=== PATIENT | male | born 1965 | race Caucasian/White ===

== ENCOUNTER 2020-05-29 19:48 | Emergency (ER) | payer BC, OTHER ==
--- NOTE | 2020-05-29 20:07 | EDM.PDOC ---
ED HPI GENERAL MEDICAL PROBLEM - General Chief Complaint: Chest Pain Stated Complaint: DIFFICULTY BREATHING, CHEST PAINS Time Seen by Provider: 05/29/20 20:03 Source of Information: Reports: Patient History Limitations: Reports: No Limitations - History of Present Illness INITIAL COMMENTS - FREE TEXT/NARRATIVE: onset upper chest pain ~ 4pm after ice fishing, denies straining or fall. hurts more on deep breath and unable to deep breath. denies h/o heart/lung problems only takes dexedrine for narcolepsy. denies recent cough/F/C. - Related Data Allergies Allergy/AdvReac Type Severity Reaction Status Date / Time No Known Allergies Allergy Verified 05/29/20 20:09 ED ROS GENERAL - Review of Systems Review Of Systems: Comprehensive ROS is negative, except as noted in HPI. ED EXAM, GENERAL - Physical Exam Exam: See Below Exam Limited By: No Limitations General Appearance: Alert, WD/WN, Anxious, Mild Distress, Moderate Distress, Other (discomfort) Ears: Hearing Grossly Normal Throat/Mouth: Normal Voice, No Airway Compromise Head: Atraumatic Neck: Non-Tender, Full Range of Motion Respiratory/Chest: No Respiratory Distress, Rhonchi Cardiovascular: Regular Rate, Rhythm GI/Abdominal: Soft, Non-Tender (Male) Exam: Deferred Rectal (Males) Exam: Deferred Back Exam: Full Range of Motion Extremities: Normal Range of Motion Neurological: Alert, Oriented, Normal Cognition, Normal Gait, No Motor/Sensory Deficits Psychiatric: Anxious Skin Exam: Warm, Dry, Normal Color Lymphatic: No Adenopathy Course - Vital Signs Last Recorded V/S: Last Vital Signs Temp 37.5 C 05/29/20 20:14 Pulse 115 H 05/29/20 20:14 Resp 22 H 05/29/20 20:14 BP 160/109 H 05/29/20 20:14 Pulse Ox 99 05/29/20 20:14 - Orders/Labs/Meds Orders: Active Orders 24 hr Category Date Time Status EKG 12 Lead [EKG Documentation Completion] [RC] STAT Care 05/29/20 20:02 Active Labs: Laboratory Tests 05/29/20 05/29/20 05/29/20 Range/Units 20:04 20:04 20:04 WBC 13.4 H (5.0-10.0) 10^3/uL RBC 5.00 (4.6-6.2) 10^6/uL Hgb 15.6 (14.0-18.0) g/dL Hct 45.3 (40.0-54.0) % MCV 90.6 (80-100) fL MCH 31.2 (27.0-34.0) pg MCHC 34.4 (33.0-35.0) g/dL Plt Count 266 (150-450) 10^3/uL Neut % (Auto) 76.7 H (42.2-75.2) % Lymph % (Auto) 12.1 L (20.5-50.1) % Atlantic % (Auto) 10.5 H (2-8) % Eos % (Auto) 0.3 L (1.0-3.0) % Baso % (Auto) 0.4 (0.0-1.0) % D-Dimer, Quantitative < 100 (0-400) ng/mL Sodium 141 (136-145) mmol/L Potassium 3.9 (3.5-5.1) mmol/L Chloride 102 (98-107) mmol/L Carbon Dioxide 26 (21-32) mmol/L Anion Gap 16.9 H (7-13) mEq/L BUN 12 (7-18) mg/dL Creatinine 1.25 (0.70-1.30) mg/dL Est Cr Clr Drug Dosing 81.68 mL/min Estimated GFR (MDRD) > 60 BUN/Creatinine Ratio 9.6 (No establ ref range) Glucose 127 H (74-99) mg/dL Lactic Acid (0.4-2.0) mmol/L Calcium 9.2 (8.5-10.1) mg/dL Total Bilirubin 0.9 (0.2-1.0) mg/dL AST 56 H (15-37) U/L ALT 68 H (16-63) U/L Alkaline Phosphatase 82 (46-116) U/L Troponin I < 0.017 (0.000-0.056) ng/mL Total Protein 7.5 (6.4-8.2) g/dL Albumin 4.5 (3.4-5.0) g/dL Globulin 3.0 Albumin/Globulin Ratio 1.5 Amylase (25-115) U/L Lipase (73-393) U/L 05/29/20 05/29/20 Range/Units 20:04 20:04 WBC (5.0-10.0) 10^3/uL RBC (4.6-6.2) 10^6/uL Hgb (14.0-18.0) g/dL Hct (40.0-54.0) % MCV (80-100) fL MCH (27.0-34.0) pg MCHC (33.0-35.0) g/dL Plt Count (150-450) 10^3/uL Neut % (Auto) (42.2-75.2) % Lymph % (Auto) (20.5-50.1) % Atlantic % (Auto) (2-8) % Eos % (Auto) (1.0-3.0) % Baso % (Auto) (0.0-1.0) % D-Dimer, Quantitative (0-400) ng/mL Sodium (136-145) mmol/L Potassium (3.5-5.1) mmol/L Chloride (98-107) mmol/L Carbon Dioxide (21-32) mmol/L Anion Gap (7-13) mEq/L BUN (7-18) mg/dL Creatinine (0.70-1.30) mg/dL Est Cr Clr Drug Dosing mL/min Estimated GFR (MDRD) BUN/Creatinine Ratio (No establ ref range) Glucose (74-99) mg/dL Lactic Acid 2.6 H* (0.4-2.0) mmol/L Calcium (8.5-10.1) mg/dL Total Bilirubin (0.2-1.0) mg/dL AST (15-37) U/L ALT (16-63) U/L Alkaline Phosphatase (46-116) U/L Troponin I (0.000-0.056) ng/mL Total Protein (6.4-8.2) g/dL Albumin (3.4-5.0) g/dL Globulin Albumin/Globulin Ratio Amylase 44 (25-115) U/L Lipase 82 (73-393) U/L Meds: Medications Discontinued Medications Generic Name Dose Route Start Last Admin Trade Name Freq PRN Reason Stop Dose Admin Iopamidol 100 ml 05/29/20 20:41 05/29/20 20:51 Isovue-300 (61%) IVPUSH 05/29/20 20:42 100 ml ONETIME ONE Administration Ketorolac Tromethamine 30 mg 05/29/20 20:10 05/29/20 20:16 Toradol IVPUSH 05/29/20 20:11 30 mg ONETIME ONE Administration - Re-Assessments/Exams Free Text/Narrative Re-Assessment/Exam: 05/29/20 22:01 results discussed with pt who states his pain is about gone. Departure - Departure Time of Disposition: 22:02 Disposition: Home, Self-Care 01 Condition: Good Clinical Impression: Acute chest wall pain, Elevated LFTs Instructions: Nonspecific Chest Pain, Adult, [id number] Forms: ED Department Discharge Additional Instructions: 1) notify family doctor when get home 2) recheck if there is any change or concern 3) try heat to sore area 4) try tylenol or motrin as needed for discomfort Sepsis Event Note (ED) - Focused Exam Vital Signs: Vital Signs Temp Pulse Resp BP Pulse Ox 05/29/20 20:14 37.5 C 115 H 22 H 160/109 H 99 - My Orders Last 24 Hours: My Active Orders 05/29/20 20:02 EKG 12 Lead [EKG Documentation Completion] [RC] STAT - Assessment/Plan Last 24 Hours: My Active Orders 05/29/20 20:02 EKG 12 Lead [EKG Documentation Completion] [RC] STAT
[2020-05-29] MEDS ORDERED: Ketorolac 30 MG/ML SDV IVPUSH ONE (20:10)
[2020-05-29 20:31] LABS: ANION GAP 16.9 mEq/L (7-13); CHLORIDE,CL 102 mmol/L (98-107); SODIUM,NA 141 mmol/L (136-145)
[2020-05-29] MEDS ORDERED: Iopamidol 612 MG/ML 100 ML Bottle IVPUSH ONE (20:41)
--- NOTE | 2020-05-29 21:50 | CT ---
PROCEDURE INFORMATION: Exam: CT Chest With Contrast; Diagnostic Exam date and time: 05/29/2020 9:06 PM Age: 54 years old Clinical indication: Other: Upper abd pain wbc 13,400 TECHNIQUE: Imaging protocol: Diagnostic computed tomography of the chest with contrast. Total images: 382 Radiation optimization: All CT scans at this facility use at least one of these dose optimization techniques: automated exposure control; mA and/or kV adjustment per patient size (includes targeted exams where dose is matched to clinical indication); or iterative reconstruction. Contrast material: [id number]; Contrast volume: 100 ml; Contrast route: INTRAVENOUS (IV); COMPARISON: No relevant prior studies available. FINDINGS: Thyroid: Prior left thyroid lobectomy. The right lobe is normal. Lungs: No acute tracheobronchial abnormalities. No infiltrates or edema. Mild atelectasis in the lung bases. No pulmonary mass lesions are identified. Pleural spaces: No pleural effusions. No pneumothorax. Heart: Heart size normal. Mediastinal space: The esophagus is largely contracted without gross abnormality. Pulmonary arteries: The pulmonary arteries demonstrate no gross abnormality. Aorta: The aorta is unremarkable. No mediastinal hematoma. Lymph nodes: No supraclavicular or axillary adenopathy. No mediastinal or hilar adenopathy. Bones/joints: No acute osseous abnormalities are identified. Soft tissues: Soft tissues of the thoracic wall demonstrate no gross abnormality. IMPRESSION: No acute thoracic process is identified. PROCEDURE INFORMATION: Exam: CT Abdomen And Pelvis With Contrast Exam date and time: 05/29/2020 9:06 PM Age: 54 years old Clinical indication: Other: Upper abd pain wbc 13,400 TECHNIQUE: Imaging protocol: Computed tomography of the abdomen and pelvis with contrast. Radiation optimization: All CT scans at this facility use at least one of these dose optimization techniques: automated exposure control; mA and/or kV adjustment per patient size (includes targeted exams where dose is matched to clinical indication); or iterative reconstruction. Contrast material: [id number]; Contrast volume: 100 ml; Contrast route: INTRAVENOUS (IV); COMPARISON: No relevant prior studies available. FINDINGS: Mediastinal space: The visualized distal esophagus is normal. Liver: Normal contour. No mass lesions. No intrahepatic biliary ductal dilatation. Gallbladder and bile ducts: Normal. No calcified stones. No ductal dilation. Pancreas: Normal. No inflammatory changes or ductal dilation. Spleen: Normal. No splenomegaly. Adrenal glands: Normal. No adrenal mass. Kidneys and ureters: No acute abnormalities. No hydronephrosis or hydroureter. No urinary tract stones are identified. Stomach and bowel: The small bowel is normal with no evidence of obstruction. No acute colonic abnormalities. There are few scattered distal colonic diverticula without evidence of diverticulitis. Appendix: The appendix is normal in caliber and demonstrates no evidence of appendicitis. Intraperitoneal space: No free fluid or air. Vasculature: No acute process. No abdominal aortic aneurysm. Circumaortic left renal vein configuration noted. Lymph nodes: No adenopathy. Urinary bladder: Unremarkable as visualized. Reproductive: Mildly enlarged prostate. Bones/joints: No acute osseous abnormalities. Soft tissues: Very small fatty umbilical hernia and small bilateral fatty inguinal hernias. No evidence of associated bowel herniation or bowel obstruction. IMPRESSION: 1. No acute intra-abdominal/intrapelvic process is identified. 2. There are few distal colonic diverticula present with no evidence of diverticulitis. 3. Additional non-emergent findings detailed above.
== END 2020-05-29 22:07 | disposition home or self-care (01) ==
LOC: DL.ED 19:48
DX: R07.89 Other chest pain (principal); R79.89 Other specified abnormal findings of blood chemistry
CPT/HCPCS: 36415; 71260; 74177; 80053; 82150; 83605; 83690; 84484; 85025; 85379; 93005; 96374; 99285; J1885; Q9967; 99283